=== PATIENT | male | born 1945 | race Caucasian/White ===

== ENCOUNTER 2017-06-22 16:31 | Emergency (ER) | payer OTHER, MEDICARE ==
[2017-06-22] MEDS ORDERED: ASPIRIN 81 MG TABLET, CHEWABLE PO ONE ×2 (16:46→16:59)
[2017-06-22 17:03] LABS: ABSOLUTE BASOPHILS # (AUTO) 0.1 10^3/uL (0.0-0.2); ABSOLUTE EOSINOPHILS # (AUTO) 0.5 10^3/uL (0.0-0.6); ABSOLUTE LYMPHOCYTES (AUTO) 2.4 10^3/uL (0.5-4.7); ABSOLUTE MONOCYTES (AUTO) 0.7 10^3/uL (0.1-1.4); ABSOLUTE NEUT (AUTO) 5.1 10^3/uL (1.7-8.2); BASOPHILS % (AUTO) 1.1 % (0-2); EOSINOPHILS % (AUTO) 5.1 % (0-6); HEMATOCRIT 46.8 % (37.9-51.0); HEMOGLOBIN 16.1 g/dL (13.5-17.0); LYMPHOCYTES % (AUTO) 27.4 % (13-45); MEAN CORPUSCULAR HEMOGLOBIN 30.5 pg (27.0-33.4); MEAN CORPUSCULAR HGB CONC 34.3 g/dL (32.0-36.0); MEAN CORPUSCULAR VOLUME 89 fl (80-97); MONOCYTES % (AUTO) 8.3 % (3-13); PLATELET COUNT 290 10^3/uL (150-450); RED BLOOD COUNT 5.27 10^6/uL (4.35-5.55); RED CELL DISTRIBUTION WIDTH 15.3 % (11.5-14.0); SEGMENTED NEUTROPHILS % (AUTO) 58.1 % (42-78); TOTAL CELLS COUNTED % (AUTO) 100 %; WHITE BLOOD COUNT 8.9 10^3/uL (4.0-10.5)
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
[2017-06-22] MEDS ORDERED: ATROPINE SULFATE INJ 1 MG/1 ML VIAL IV PRN (17:05)
[2017-06-22 17:19] LABS: ALANINE AMINOTRANSFERASE 27 U/L (21-72); ALBUMIN 4.4 g/dL (3.5-5.0); ALKALINE PHOSPHATASE 90 U/L (38-126); ANION GAP 10 (5-19); ASPARTATE AMINO TRANSFERASE 17 U/L (17-59); BILIRUBIN,DIRECT 0.4 mg/dL (0.0-0.4); BILIRUBIN,TOTAL 0.6 mg/dL (0.2-1.3); BLOOD UREA NITROGEN 22 mg/dL (7-20); CALCIUM 10.3 mg/dL (8.4-10.2); CARBON DIOXIDE 29 mmol/L (22-30); CHLORIDE 103 mmol/L (98-107); CREATINE KINASE 51 U/L (55-170); GLUCOSE 91 mg/dL (75-110); POTASSIUM 4.3 mmol/L (3.6-5.0); SODIUM 141.7 mmol/L (137-145)
--- NOTE | 2017-06-22 17:26 | RADIOLOGY REPORT (SQ) ---
EXAM DESCRIPTION: CHEST SINGLE VIEW COMPLETED DATE/TIME: 06/22/2017 5:15 pm REASON FOR STUDY: chest pain COMPARISON: None. EXAM PARAMETERS: NUMBER OF VIEWS: One view. TECHNIQUE: Single frontal radiographic view of the chest acquired. RADIATION DOSE: NA LIMITATIONS: None. FINDINGS: LUNGS AND PLEURA: No opacities, masses or pneumothorax. No pleural effusion. MEDIASTINUM AND HILAR STRUCTURES: There is widening of the upper mediastinum on the right. HEART AND VASCULAR STRUCTURES: Heart size is borderline. Normal vasculature. BONES: No acute findings. HARDWARE: Neural stimulator in the thoracic spine. OTHER: No other significant finding. IMPRESSION: There appears to be widening of the upper mediastinum. Consider CT chest with contrast. TECHNICAL DOCUMENTATION: JOB ID: [id number] [employer]- All Rights Reserved Reading location - IP/workstation name: [email or web address]
[2017-06-22 17:31] LABS: CREATINE KINASE MB 1.33 ng/mL (<4.55)
[2017-06-22 17:34] LABS: TROPONIN I 0.05 ng/mL
[2017-06-22] MEDS ORDERED: DOPAMINE HCL/DEXTROSE 5%-WATER 800 MG/250 ML RTUINJ IV PRN (17:59)
--- NOTE | 2017-06-22 18:40 | Progress Note ---
Provider Note Provider Note: I asked to see the patient by the emergency room physician Dr. Ramirez. Patient was sent from my office earlier today when he was noted to have complete heart block with heart rate in the high 20s to high 30s. Patient was actually noted to be very stable at this heart rate and was able to walk on a walker to his 's car and be driven to the ER. They had actually declined a EMS transport at that time. The distance was short from the office therefore it was felt safe. In the ER, patient was noted to have low blood pressure in the 90s but seemed to be tolerating this well without any change in mentation or any other signs of low perfusion. Subsequently patient received 0.5 mg of atropine intravenously. At this point, patient was noted to have a heart rate in the 40s with sinus rhythm with blood pressure in the 140s systolic. Patient has transcutaneous pacemaker on. So far has not been symptomatic enough to need this to be turned on. Feel that patient is stable for transfer to a tertiary care for a more definitive management. I am told that the troponin I was also noted to be high. Potassium level was noted to be 4.3. Overall I feel patient will benefit from a permanent pacemaker because of complete heart block which is not available at this institution at this time. Do not feel a temporary transvenous pacemaker with its attendant complications (risk benefits does not favor at this time) is needed at this time, although this need may arise any time and am available to provide this service. Should patient has symptomatic bradycardia, recommend treatment per ACLS protocol in the meantime. As usual I thank Dr. Ramirez for the opportunity to see this patient.
[2017-06-22 19:09] VITALS: BP 151/76
--- NOTE | 2017-06-22 22:22 | EKG REPORT ---
SEVERITY:- ABNORMAL ECG - COMPLETE HEART BLOCK WITH WIDE COMPLEX ESCAPE LEFT BUNDLE BRANCH BLOCK : Confirmed by: Adiel Romeo 22-Jun-2017 22:21:55
== END 2017-06-22 19:11 | disposition short-term general hospital (02) ==
LOC: ER 16:31
DX: R00.1 Bradycardia, unspecified (principal); I44.7 Left bundle-branch block, unspecified; R53.1 Weakness; R42 Dizziness and giddiness
CPT/HCPCS: 93005; 99291; 99292; 96374; 36415; 82553; 82550; 85025; 80053; 84484; 71045; 93010; J0461